=== PATIENT | female | born 1960 | race Caucasian/White ===

== ENCOUNTER → 2023-11-18 15:38 | Outpatient (REF) | payer BC, SELFPAY | LOC: WDC 15:38 | PROVIDERS: ATTENDING PHYSICIAN Internal Medicine | DX: Z12.31 Encounter for screening mammogram for malignant neoplasm of breast (principal) | CPT/HCPCS: 77063; 77067 ==

== ENCOUNTER → 2023-12-27 08:28 | Outpatient (REF) | payer BC, SELFPAY | LOC: RAD 08:28 | PROVIDERS: ATTENDING PHYSICIAN Internal Medicine | DX: E03.9 Hypothyroidism, unspecified (principal); Z85.850 Personal history of malignant neoplasm of thyroid | CPT/HCPCS: 76536 ==

== ENCOUNTER → 2025-05-18 13:27 | Outpatient (REF) | payer MEDICARE, BC, SELFPAY | LOC: WDC 13:27 | PROVIDERS: ATTENDING PHYSICIAN Internal Medicine | DX: Z12.31 Encounter for screening mammogram for malignant neoplasm of breast (principal) | CPT/HCPCS: 77063; 77067 ==

== ENCOUNTER → 2025-07-03 11:09 | Outpatient (REF) | payer MEDICARE, BC, SELFPAY | LOC: RAD 11:09 | PROVIDERS: ATTENDING PHYSICIAN Internal Medicine | DX: Z78.0 Asymptomatic menopausal state (principal) | CPT/HCPCS: 77080 ==

== ENCOUNTER 2025-08-06 09:16 | Outpatient (RCR) | payer MEDICARE, BC, SELFPAY | END 2025-08-06 23:59 | disposition home or self-care (01) | LOC: RPT 09:16 | PROVIDERS: ATTENDING PHYSICIAN Internal Medicine | DX: M54.2 Cervicalgia (principal); Z73.6 Limitation of activities due to disability; M62.81 Muscle weakness (generalized) | CPT/HCPCS: 97010; 97112; 97140; 97162 ==

== ENCOUNTER 2025-09-07 08:26 | Outpatient (RCR) | payer MEDICARE, BC, SELFPAY | END 2025-09-07 23:59 | disposition home or self-care (01) | LOC: RPT 08:26 | PROVIDERS: ATTENDING PHYSICIAN Internal Medicine | DX: M54.2 Cervicalgia (principal); Z73.6 Limitation of activities due to disability; M62.81 Muscle weakness (generalized) | CPT/HCPCS: 97010; 97110; 97112; 97140 ==